=== PATIENT | female | born 1945 | race Two or more races ===

== ENCOUNTER 2017-03-13 14:52 | Emergency (ER) | payer OTHER ==
[~2017-03-13] VITALS: Ht 157.5 cm; Wt 77.1 kg
[~2017-03-13 14:52] MED LIST: AVALIDE 150-12.1 TA1 PO; CIPRO500 MG PO; GABAPENTIN300 MG; MOTRIN800 MG PO; NABUMETONE750 MG; OXYCODON HCL-AP1 TA1; PEPCID40 MG PO; ZOFRAN4 MG PO
[2017-03-13] MEDS ORDERED: ZOCOR5 MG (15:30)
== END 2017-03-13 19:15 | disposition home or self-care (01) ==
LOC: ER 14:52
DX: S80.01XA Contusion of right knee, initial encounter (principal); S30.0XXA Contusion of lower back and pelvis, initial encounter; M51.26 Other intervertebral disc displacement, lumbar region; W18.39XA Other fall on same level, initial encounter; Y93.89 Activity, other specified; Y92.018 Other place in single-family (private) house as the place of occurrence of the external cause; Y99.8 Other external cause status

== ENCOUNTER → 2017-07-07 16:16 | Outpatient (CLI) | payer OTHER | END | disposition home or self-care (01) | LOC: RAD 16:16 | DX: J44.9 Chronic obstructive pulmonary disease, unspecified (principal) ==

== ENCOUNTER → 2017-07-07 | Outpatient (CLI) | payer OTHER ==
[~2017-07-07] MED LIST changes: +ZOCOR5 MG
== END | disposition home or self-care (01) ==
LOC: LAB 16:14
DX: I10 Essential (primary) hypertension (principal); D64.0 Hereditary sideroblastic anemia; N39.0 Urinary tract infection, site not specified; D68.8 Other specified coagulation defects

== ENCOUNTER 2017-07-08 15:25 | Outpatient (CLI) | payer OTHER | END 2017-07-08 15:26 | disposition home or self-care (01) | LOC: EKG 15:25 | DX: I10 Essential (primary) hypertension (principal) ==

== ENCOUNTER 2018-01-31 17:11 | Outpatient (CLI) | payer OTHER | END 2018-01-31 17:19 | disposition home or self-care (01) | LOC: RAD 17:11 | DX: M17.0 Bilateral primary osteoarthritis of knee (principal) ==

== ENCOUNTER 2018-02-28 15:35 | Outpatient (CLI) | payer OTHER | END 2018-02-28 15:46 | disposition home or self-care (01) | LOC: RAD 501 15:35 | DX: M21.70 Unequal limb length (acquired), unspecified site (principal) ==

== ENCOUNTER 2018-03-29 06:53 | Emergency (ER) | payer OTHER ==
[~2018-03-29] VITALS: Ht 157.5 cm; Wt 77.1 kg
[2018-03-29] MEDS ORDERED: COZAAR50 MG (07:05)
[2018-03-29] MEDS ORDERED: BACTRIM DS TAB1 EACH PO (08:36)
[2018-03-29] MEDS ORDERED: SILVADENE20 GM TOP (08:36)
== END 2018-03-29 08:49 ==
LOC: ER 06:53
DX: T24.311A Burn of third degree of right thigh, initial encounter (principal); X16.XXXA Contact with hot heating appliances, radiators and pipes, initial encounter; Y92.098 Other place in other non-institutional residence as the place of occurrence of the external cause; Y99.8 Other external cause status

== ENCOUNTER 2018-04-06 12:58 | Outpatient (CLI) | payer OTHER | END 2018-04-06 13:27 | disposition home or self-care (01) | LOC: MRI 12:58 | DX: M48.07 Spinal stenosis, lumbosacral region (principal) | CPT/HCPCS: 72148 ==

== ENCOUNTER → 2018-04-06 | Outpatient (CLI) | payer OTHER ==
[~2018-04-06] MED LIST changes: +BACTRIM DS TAB1 EACH PO; +COZAAR50 MG; +SILVADENE20 GM TOP
== END | disposition home or self-care (01) ==
LOC: WOUND MED 09:56
DX: T24.211A Burn of second degree of right thigh, initial encounter (principal); L97.112 Non-pressure chronic ulcer of right thigh with fat layer exposed
CPT/HCPCS: 11042; G0463; A4554; A4930; A6216; A6219

== ENCOUNTER 2018-04-09 14:18 | Emergency (ER) | payer OTHER ==
[~2018-04-09] VITALS: Ht 157.5 cm; Wt 77.1 kg
== END 2018-04-09 18:18 | disposition home or self-care (01) ==
LOC: ER 14:18
DX: B34.9 Viral infection, unspecified (principal); J09.X2 Influenza due to identified novel influenza A virus with other respiratory manifestations

== ENCOUNTER → 2018-04-13 | Outpatient (CLI) | payer OTHER | END | disposition home or self-care (01) | LOC: WOUND MED 11:14 | DX: L89.312 Pressure ulcer of right buttock, stage 2 (principal) | CPT/HCPCS: 11042; A4554; A4930; A6216; A6219; A6242 ==

== ENCOUNTER → 2018-04-20 | Outpatient (CLI) | payer OTHER | END | disposition home or self-care (01) | LOC: WOUND MED 10:40 | DX: L89.312 Pressure ulcer of right buttock, stage 2 (principal) | CPT/HCPCS: 11042; A4554; A4930; A6216; A6219 ==

== ENCOUNTER → 2018-04-27 | Outpatient (CLI) | payer OTHER | END | disposition home or self-care (01) | LOC: WOUND MED 12:34 | DX: L89.312 Pressure ulcer of right buttock, stage 2 (principal) | CPT/HCPCS: 11042; A4554; A4930; A6216; A6219 ==

== ENCOUNTER → 2018-05-04 | Outpatient (CLI) | payer OTHER | END | disposition home or self-care (01) | LOC: WOUND MED 10:49 | DX: L89.312 Pressure ulcer of right buttock, stage 2 (principal) | CPT/HCPCS: 11042; A4554; A4930; A6216; A6219 ==

== ENCOUNTER → 2018-05-11 | Outpatient (CLI) | payer OTHER | END | disposition home or self-care (01) | LOC: WOUND MED 09:10 | DX: L89.312 Pressure ulcer of right buttock, stage 2 (principal) | CPT/HCPCS: 97602; A4554; A4930; A6216; A6219 ==

== ENCOUNTER → 2018-05-18 | Outpatient (CLI) | payer OTHER | END | disposition home or self-care (01) | LOC: WOUND MED 10:32 | DX: L89.312 Pressure ulcer of right buttock, stage 2 (principal) | CPT/HCPCS: 11042; A4554; A4930; A6216; A6219 ==

== ENCOUNTER → 2018-05-25 | Outpatient (CLI) | payer OTHER | END | disposition home or self-care (01) | LOC: WOUND MED 08:40 | DX: L89.312 Pressure ulcer of right buttock, stage 2 (principal) | CPT/HCPCS: 11042; A4554; A4930; A6216; A6219 ==

== ENCOUNTER → 2018-06-02 | Outpatient (CLI) | payer OTHER | END | disposition home or self-care (01) | LOC: WOUND MED 10:15 | DX: L89.312 Pressure ulcer of right buttock, stage 2 (principal) | CPT/HCPCS: 11042; A4554; A4930; A6216 ==

== ENCOUNTER → 2018-06-09 | Outpatient (CLI) | payer OTHER | END | disposition home or self-care (01) | LOC: WOUND MED 09:25 | DX: L89.312 Pressure ulcer of right buttock, stage 2 (principal) | CPT/HCPCS: 11042; A4554; A4930; A6021; A6216 ==

== ENCOUNTER → 2018-06-16 | Outpatient (CLI) | payer OTHER | END | disposition home or self-care (01) | LOC: WOUND MED 10:28 | DX: L89.312 Pressure ulcer of right buttock, stage 2 (principal) | CPT/HCPCS: 11042; A4554; A4930; A6212; A6216; A6219 ==

== ENCOUNTER 2018-06-17 14:41 | Outpatient (CLI) | payer OTHER | END 2018-06-17 16:56 | disposition home or self-care (01) | LOC: LAB 14:41 → RAD 14:41 | DX: M43.26 Fusion of spine, lumbar region (principal); Z96.643 Presence of artificial hip joint, bilateral ==

== ENCOUNTER → 2018-06-30 | Outpatient (CLI) | payer OTHER | END | disposition home or self-care (01) | LOC: WOUND MED 11:32 | DX: L89.312 Pressure ulcer of right buttock, stage 2 (principal) | CPT/HCPCS: G0463; A4554; A4930; A6216 ==

== ENCOUNTER 2019-06-15 11:53 | Outpatient (CLI) | payer OTHER | END 2019-06-15 12:01 | disposition home or self-care (01) | LOC: LAB 11:53 | DX: M06.09 Rheumatoid arthritis without rheumatoid factor, multiple sites (principal); E03.8 Other specified hypothyroidism; D51.8 Other vitamin B12 deficiency anemias; M33.22 Polymyositis with myopathy; E67.3 Hypervitaminosis D; E78.01 Familial hypercholesterolemia; E11.9 Type 2 diabetes mellitus without complications ==

== ENCOUNTER 2019-06-15 12:57 | Outpatient (CLI) | payer OTHER | END 2019-06-15 14:33 | disposition home or self-care (01) | LOC: RAD 12:57 | DX: M15.8 Other polyosteoarthritis (principal); M51.27 Other intervertebral disc displacement, lumbosacral region ==

== ENCOUNTER 2019-06-22 20:12 | Emergency (ER) | payer OTHER ==
[~2019-06-22] VITALS: Ht 157.5 cm; Wt 79.4 kg
[2019-06-22] MEDS ORDERED: TUSNEL LIQUID178 ML PO (22:09)
[2019-06-22] MEDS ORDERED: ZITHROMAX500 MG PO (22:09)
[2019-06-22] MEDS ORDERED: CLARITIN10 MG PO (22:10)
== END 2019-06-22 22:55 | disposition home or self-care (01) ==
LOC: ER 20:12
DX: R04.0 Epistaxis (principal); J06.9 Acute upper respiratory infection, unspecified

== ENCOUNTER 2019-09-11 13:13 | Outpatient (CLI) | payer OTHER ==
[~2019-09-11 13:13] MED LIST changes: +CLARITIN10 MG PO; +TUSNEL LIQUID178 ML PO; +ZITHROMAX500 MG PO
== END 2019-09-11 13:21 | disposition home or self-care (01) ==
LOC: LAB 13:13
DX: E11.9 Type 2 diabetes mellitus without complications (principal); I10 Essential (primary) hypertension; E03.8 Other specified hypothyroidism; E78.2 Mixed hyperlipidemia; M81.0 Age-related osteoporosis without current pathological fracture; Z12.11 Encounter for screening for malignant neoplasm of colon; Z20.818 Contact with and (suspected) exposure to other bacterial communicable diseases

== ENCOUNTER 2020-01-16 20:04 | Emergency (ER) | payer OTHER ==
[~2020-01-16] VITALS: Ht 157.5 cm; Wt 77.1 kg
== END 2020-01-16 21:28 | disposition home or self-care (01) ==
LOC: ER 20:04
DX: H92.02 Otalgia, left ear (principal)

== ENCOUNTER → 2020-04-24 | Outpatient (CLI) | payer OTHER | END | disposition home or self-care (01) | LOC: RAD 16:20 | PROVIDERS: ATTEND Internal Medicine Rheumatology | DX: M25.761 Osteophyte, right knee (principal); M15.8 Other polyosteoarthritis ==

== ENCOUNTER 2020-07-15 13:23 | Outpatient (CLI) | payer OTHER | END 2020-07-15 13:36 | disposition home or self-care (01) | LOC: LAB 13:23 | PROVIDERS: ATTEND Internal Medicine Cardiovascular Disease | DX: E03.8 Other specified hypothyroidism (principal); I10 Essential (primary) hypertension; E11.9 Type 2 diabetes mellitus without complications; E78.2 Mixed hyperlipidemia; Z12.11 Encounter for screening for malignant neoplasm of colon; E55.9 Vitamin D deficiency, unspecified ==

== ENCOUNTER 2021-04-28 14:02 | Outpatient (CLI) | payer OTHER | END 2021-04-28 14:04 | disposition home or self-care (01) | LOC: LAB 14:02 | PROVIDERS: ATTEND Internal Medicine Endocrinology, Diabetes & Metabolism | DX: R50.83 Postvaccination fever (principal); R79.9 Abnormal finding of blood chemistry, unspecified; E55.9 Vitamin D deficiency, unspecified ==

== ENCOUNTER 2021-08-06 15:57 | Outpatient (CLI) | payer OTHER | END 2021-08-06 16:04 | disposition home or self-care (01) | LOC: TOM 15:57 | PROVIDERS: ATTEND Internal Medicine Cardiovascular Disease | DX: R10.9 Unspecified abdominal pain (principal) ==

== ENCOUNTER 2021-08-07 08:31 | Outpatient (CLI) | payer OTHER | END 2021-08-07 14:08 | disposition home or self-care (01) | LOC: LAB 08:31 | PROVIDERS: ATTEND Internal Medicine Cardiovascular Disease | DX: I10 Essential (primary) hypertension (principal); E11.9 Type 2 diabetes mellitus without complications; E03.9 Hypothyroidism, unspecified; E78.2 Mixed hyperlipidemia; Z12.11 Encounter for screening for malignant neoplasm of colon; E55.9 Vitamin D deficiency, unspecified ==

== ENCOUNTER 2021-08-10 11:16 | Outpatient (CLI) | payer OTHER | END 2021-08-10 11:19 | disposition home or self-care (01) | LOC: LAB 11:16 | PROVIDERS: ATTEND Internal Medicine Cardiovascular Disease | DX: I10 Essential (primary) hypertension (principal); E11.9 Type 2 diabetes mellitus without complications; E03.9 Hypothyroidism, unspecified; E78.2 Mixed hyperlipidemia; Z12.11 Encounter for screening for malignant neoplasm of colon; E55.9 Vitamin D deficiency, unspecified ==

== ENCOUNTER 2021-12-14 00:14 | Emergency (ER) | payer OTHER ==
[~2021-12-14] VITALS: Ht 157.5 cm; Wt 81.6 kg
[2021-12-14] MEDS ORDERED: DICLOFENAC POTA50 MG PO (01:52)
== END 2021-12-14 01:58 ==
LOC: ER 00:14
DX: S09.90XA Unspecified injury of head, initial encounter (principal); W31.89XA Contact with other specified machinery, initial encounter; Y93.A1 Activity, exercise machines primarily for cardiorespiratory conditioning; Y92.019 Unspecified place in single-family (private) house as the place of occurrence of the external cause; I10 Essential (primary) hypertension; S69.92XA Unspecified injury of left wrist, hand and finger(s), initial encounter

== ENCOUNTER 2022-08-19 09:01 | Emergency (ER) | payer OTHER ==
[~2022-08-19] VITALS: Ht 157.5 cm; Wt 75.7 kg
[~2022-08-19 09:01] MED LIST changes: +DICLOFENAC POTA50 MG PO
== END 2022-08-19 14:34 | disposition home or self-care (01) ==
LOC: ER 09:01
DX: R47.1 Dysarthria and anarthria (principal); I10 Essential (primary) hypertension

== ENCOUNTER 2022-09-07 13:13 | Outpatient (CLI) | payer OTHER | END 2022-09-07 13:14 | disposition home or self-care (01) | LOC: LAB 13:13 | DX: I10 Essential (primary) hypertension (principal) ==

== ENCOUNTER 2022-10-07 10:57 | Outpatient (CLI) | payer OTHER | END 2022-10-07 11:07 | disposition home or self-care (01) | LOC: MAMO-SONO 10:57 | PROVIDERS: ATTEND Internal Medicine Cardiovascular Disease | DX: N63.11 Unspecified lump in the right breast, upper outer quadrant (principal); Z12.31 Encounter for screening mammogram for malignant neoplasm of breast ==

== ENCOUNTER 2022-11-11 12:05 | Outpatient (CLI) | payer OTHER | END 2022-11-11 12:06 | disposition home or self-care (01) | LOC: LAB 12:05 | PROVIDERS: ATTEND Internal Medicine Cardiovascular Disease | DX: Z12.11 Encounter for screening for malignant neoplasm of colon (principal); E55.9 Vitamin D deficiency, unspecified; K92.89 Other specified diseases of the digestive system ==

== ENCOUNTER 2022-12-08 13:23 | Outpatient (CLI) | payer OTHER | END 2022-12-08 13:26 | disposition home or self-care (01) | LOC: NUCLEAR 13:23 | PROVIDERS: ATTEND Internal Medicine Cardiovascular Disease | DX: M81.0 Age-related osteoporosis without current pathological fracture (principal); E55.9 Vitamin D deficiency, unspecified ==

== ENCOUNTER 2022-12-08 14:30 | Outpatient (CLI) | payer OTHER | END 2022-12-08 14:41 | disposition home or self-care (01) | LOC: RAD 14:30 | PROVIDERS: ATTEND Internal Medicine Cardiovascular Disease | DX: M12.9 Arthropathy, unspecified (principal) ==